=== PATIENT | male | born 1980 | race Caucasian/White ===

== ENCOUNTER 2023-01-31 10:56 | Day surgery (SDC) | payer BC ==
[2023-01-31] MEDS ORDERED: BUPIVACAINE 0.5% VIAL IJ ONE (10:57)
[2023-01-31] MEDS ORDERED: Depo-Medrol 40 MG/ML IM ONE (10:57)
[2023-01-31] MEDS ORDERED: DIPRIVAN 200 MG/20 ML IV ONE (13:30)
[2023-01-31] MEDS ORDERED: Versed 2 MG/2 ML Injection ONE (13:34)
--- NOTE | 2023-01-31 15:02 | XRAY ---
Indication: Bilateral SI joints injection. Intraoperative fluoroscopy provided for 20 seconds. 4 digital spot images submitted for interpretation demonstrates posterior needle tip projecting over the left and right SI joint. Correlate with intraoperative findings/report. Incidental partially visualized lumbosacral junction fusion hardware.
--- NOTE | 2023-01-31 15:06 | XRAY ---
20 seconds of fluoroscopy was used in surgery for a bilateral sacroiliac joint injection.
[2023-01-31] MEDS ORDERED: Lactated Ringers 1,000 ML IV ONE (15:35)
== END 2023-01-31 13:58 | disposition home or self-care (01) ==
LOC: SDC-PAIN 10:56
PROVIDERS: ATTEND Psychiatry & Neurology Pain Medicine
DX: M46.1 Sacroiliitis, not elsewhere classified (principal); Z79.899 Other long term (current) drug therapy
CPT/HCPCS: 27096; 72202; 77002; J1030; J2250; J2704; G0260

== ENCOUNTER 2023-04-24 15:58 | Day surgery (SDC) | payer BC ==
[2023-04-24] MEDS ORDERED: Depo-Medrol 40 MG/ML IM ONE (15:59)
[2023-04-24] MEDS ORDERED: LIDOCAINE HCL 2% 100 MG/5 ML IJ ONE (15:59)
[2023-04-24] MEDS ORDERED: Lactated Ringers 1,000 ML IV ONE (17:59)
[2023-04-24] MEDS ORDERED: DIPRIVAN 200 MG/20 ML IV ONE (18:25)
[2023-04-24] MEDS ORDERED: Versed 2 MG/2 ML Injection ONE (18:25)
--- NOTE | 2023-04-24 20:43 | XRAY ---
Indication: Bilateral L4-S1 MBB. Intraoperative fluoroscopy provided for 12 seconds. Single digital spot image submitted for interpretation demonstrates posterior needle tips projecting over the expected left and right L4-S1 nerve roots. Correlate with intraoperative findings/report. Incidental lumbosacral junction fusion hardware.
--- NOTE | 2023-04-25 08:46 | XRAY ---
12 seconds of fluoroscopy was used in surgery for a bilateral L4-S1 MBB.
== END 2023-04-24 18:50 | disposition home or self-care (01) ==
LOC: SDC-PAIN 15:58
PROVIDERS: ATTEND Psychiatry & Neurology Pain Medicine
DX: M47.816 Spondylosis without myelopathy or radiculopathy, lumbar region (principal); Z79.899 Other long term (current) drug therapy
CPT/HCPCS: 64493; 64494; 72020; 77002; J1030; J2250; J2704